=== PATIENT | female | born 1990 | race American Indian/Alaskan Native ===

== ENCOUNTER 2016-11-16 22:01 | Emergency (ER) | payer BC, OTHER ==
[2016-11-16] MEDS ORDERED: Sodium Chloride 0.9% 1,000 ML IV ONE (22:20)
[2016-11-16] MEDS ORDERED: Ketorolac 30 MG/ML SDV IVPUSH ONE (22:20)
[2016-11-16] MEDS ORDERED: Ondansetron 4 MG/2 ML SDV IV ONE (22:20)
--- NOTE | 2016-11-16 22:22 | EDM.PDOC ---
ED HPI GENERAL MEDICAL PROBLEM - General Chief Complaint: Abdominal Pain Stated Complaint: ABD,BACK PAINS, [id number] Time Seen by Provider: 11/16/16 22:20 Source of Information: Reports: Patient History Limitations: Reports: No Limitations - History of Present Illness INITIAL COMMENTS - FREE TEXT/NARRATIVE: 2 days h/o left flank pain with some urinary discomfort almost feels like K- stone been nauseous no vomiting. Left Flank Pain Score (Numeric/FACES): 8 - Related Data Allergies Allergy/AdvReac Type Severity Reaction Status Date / Time No Known Allergies Allergy Verified 11/16/16 22:04 Home Meds: Home Meds . 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 Musculoskeletal History: Reports: None Neurological History: Reports: None Psychiatric History: Reports: None Endocrine/Metabolic History: Reports: None Hematologic History: Reports: None Immunologic History: Reports: None Oncologic (Cancer) History: Reports: None Dermatologic History: Reports: None - Past Surgical History Female Surgical History: Reports: Lithotripsy/ESWL Social & Family History - Family History Family Medical History: Noncontributory - Tobacco Use Smoking Status *Q: Light Tobacco Smoker Years of Tobacco use: 10 Packs/Tins Daily: 0.2 Used Tobacco, but Quit: No Second Hand Smoke Exposure: No - Alcohol Use Days Per Week of Alcohol Use: 0 - Recreational Drug Use Recreational Drug Use: No - Living Situation & Occupation Living situation: Reports: with Family ED ROS GENERAL - Review of Systems Review Of Systems: ROS reveals no pertinent complaints other than HPI. ED EXAM, RENAL/ - Physical Exam Exam: See Below Exam Limited By: No Limitations General Appearance: Alert, WD/WN, Mild Distress, Other (discomfort) Ears: Hearing Grossly Normal Throat/Mouth: Normal Voice, No Airway Compromise Head: Atraumatic Neck: Non-Tender, Full Range of Motion Respiratory/Chest: No Respiratory Distress Cardiovascular: Regular Rate, Rhythm GI/Abdominal: Soft, Non-Tender Back Exam: CVA Tenderness (L) Neurological: Alert, Oriented, Normal Cognition, Normal Gait, No Motor/Sensory Deficits Psychiatric: Tearful Skin Exam: Warm, Dry Lymphatic: No Adenopathy Course - Vital Signs Last Recorded V/S: Last Vital Signs Temp 35.7 C 11/16/16 22:05 Pulse 69 11/16/16 22:05 Resp 18 11/16/16 22:05 BP 143/84 H 11/16/16 22:05 Pulse Ox 97 11/16/16 22:05 - Orders/Labs/Meds Orders: Active Orders 24 hr Category Date Time Status Sodium Chloride 0.9% [Normal Saline] 1,000 ml Med 11/16/16 22:20 Active IV .BOLUS Medication Orders Sodium Chloride (Normal Saline) 1,000 mls @ 999 mls/hr IV .BOLUS ONE Stop: 11/16/16 23:20 Last Admin: 11/16/16 22:26 Dose: 999 mls/hr Labs: Laboratory Tests 11/16/16 11/16/16 11/16/16 Range/Units 22:03 22:03 22:03 Urine Color Yellow (YELLOW) Urine Appearance Slightly cloudy (CLEAR) Urine pH 6.5 (5.0-9.0) Ur Specific [place] 1.020 (1.005-1.030) Urine Protein Negative (NEGATIVE) Urine Glucose (UA) Negative (NEGATIVE) Urine Ketones Negative (NEGATIVE) Urine Occult Blood Moderate H (NEGATIVE) Urine Nitrite Negative (NEGATIVE) Urine Bilirubin Negative (NEGATIVE) Urine Urobilinogen 0.2 (0.2-1.0) mg/dL Ur Leukocyte Esterase Trace H (NEGATIVE) Urine RBC 5-10 H /HPF Urine WBC 0-5 (0-5/HPF) /HPF Ur Epithelial Cells Many H /HPF Urine Bacteria Moderate H (0-FEW/HPF) /HPF Urine HCG, Qual Negative Urine Opiates Screen Negative (NEGATIVE) Ur Oxycodone Screen Negative (NEGATIVE) Urine Methadone Screen Negative (NEGATIVE) Ur Barbiturates Screen Negative (NEGATIVE) U Tricyclic Antidepress Negative (NEGATIVE) Ur Phencyclidine Scrn Negative (NEGATIVE) Ur Amphetamine Screen Negative (NEGATIVE) U Methamphetamines Scrn Negative (NEGATIVE) Urine MDMA Screen Negative (NEGATIVE) U Benzodiazepines Scrn Negative (NEGATIVE) Urine Cocaine Screen Negative (NEGATIVE) U Marijuana (THC) Screen Positive H (NEGATIVE) Meds: Medications Generic Name Dose Route Start Last Admin Trade Name Freq PRN Reason Stop Dose Admin Sodium Chloride 1,000 mls @ 999 mls/hr 11/16/16 22:20 11/16/16 22:26 Normal Saline IV 11/16/16 23:20 999 mls/hr .BOLUS ONE Administration Discontinued Medications Generic Name Dose Route Start Last Admin Trade Name Cari PRN Reason Stop Dose Admin Ketorolac Tromethamine 15 mg 11/16/16 22:20 11/16/16 22:28 Toradol IVPUSH 11/16/16 22:21 15 mg ONETIME ONE Administration Ondansetron HCl 4 mg 11/16/16 22:20 11/16/16 22:27 Zofran IV 11/16/16 22:21 4 mg ONETIME ONE Administration - Re-Assessments/Exams Free Text/Narrative Re-Assessment/Exam: 11/16/16 23:16 results discussed with Pt who is feeling much better now Departure - Departure Time of Disposition: 23:16 Disposition: Home, Self-Care 01 Condition: Good Clinical Impression: Lumbar paraspinal muscle spasm - Discharge Information Instructions: Back Exercises, [id number] Forms: ED Department Discharge Additional Instructions: 1) rest and avoid bending lifting straining 2) try ice or heat to area 3) follow up with clinic or recheck as needed - My Orders Last 24 Hours: My Active Orders 11/16/16 22:20 Sodium Chloride 0.9% [Normal Saline] 1,000 ml IV .BOLUS - Assessment/Plan Last 24 Hours: My Active Orders 11/16/16 22:20 Sodium Chloride 0.9% [Normal Saline] 1,000 ml IV .BOLUS
[2016-11-16 23:20] VITALS: BP 100/56
== END 2016-11-16 23:23 | disposition home or self-care (01) ==
LOC: DL.ED 22:01
DX: M62.830 Muscle spasm of back (principal); R10.9 Unspecified abdominal pain
CPT/HCPCS: 74176; 80305; 81001; 81025; J1885; J2405; J7030; 96361; 96374; 96375; 99284

== ENCOUNTER 2017-10-09 20:11 | Emergency (ER) | payer OTHER ==
[2017-10-09] MEDS ORDERED: Aluminum Hydroxide/Magnesium Hydroxide/Simethicone Susp 30 ML Cup PO ONE (20:51)
[2017-10-09] MEDS ORDERED: Ondansetron 4 MG Tab.DIS PO ONE (20:51)
[2017-10-09 20:55] LABS: CHLORIDE,CL 100 mmol/L (101-111); SODIUM,NA 134 mmol/L (135-145)
[2017-10-09] MEDS ORDERED: Sodium Chloride 0.9% 1,000 ML IV ONE (21:09)
[2017-10-09] MEDS ORDERED: Potassium Chloride 10 MEQ in Premix Bag 1 BAG IV ONE (21:10)
--- NOTE | 2017-10-09 23:20 | EDM.PDOC ---
ED HPI GENERAL MEDICAL PROBLEM - General Chief Complaint: Chest Pain Stated Complaint: CHEST PAINS Time Seen by Provider: 10/09/17 20:30 Source of Information: Reports: Patient History Limitations: Reports: No Limitations - History of Present Illness INITIAL COMMENTS - FREE TEXT/NARRATIVE: ED with c/o mid sternal and epigastric pain starting today around 4pm that has not improved, last meal Burrito. Was seen at [facility] today and treated for kidney infection with Keflex. Notes has not taken this anitibiotic previously. Notes 12 weeks . OB appointment with Dr Lind on Sunday. 2. 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 Referral to nephrology and OB is reported to being arranged by [facility]. States US of kidney done today with limited visualization. 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 Musculoskeletal History: Reports: Fracture, Other (See Below) Other Musculoskeletal History: Colar bone and right wrist fracture Neurological History: Reports: None Psychiatric History: Reports: None Endocrine/Metabolic History: Reports: None Hematologic History: Reports: None Immunologic History: Reports: None Oncologic (Cancer) History: Reports: None Dermatologic History: Reports: None - Past Surgical History Female Surgical History: Reports: Lithotripsy/ESWL Social & Family History - Family History Family Medical History: Noncontributory - Tobacco Use Smoking Status *Q: Never Smoker - Caffeine Use Caffeine Use: Reports: Soda - Recreational Drug Use Recreational Drug Use: No - Living Situation & Occupation Living situation: Reports: with Family ED ROS GENERAL - Review of Systems Review Of Systems: See Below Constitutional: Reports: No Symptoms HEENT: Reports: No Symptoms Respiratory: Reports: No Symptoms Cardiovascular: Reports: No Symptoms GI/Abdominal: Reports: Abdominal Pain, Nausea. Denies: Vomiting : Reports: Dysuria, Flank Pain (right, hx left ureteral stent), Other ( initiated on Keflex today for UTI) ED EXAM, GI/ABD - Physical Exam Exam: See Below Exam Limited By: No Limitations General Appearance: Alert, Mild Distress, Active Emesis (dry heaves) Eyes: Bilateral: EOMI Ears: Normal External Exam Nose: Normal Inspection Throat/Mouth: Normal Inspection Head: Atraumatic, Normocephalic Neck: Normal Inspection Respiratory/Chest: No Respiratory Distress, Lungs Clear, Normal Breath Sounds Cardiovascular: Normal Peripheral Pulses, Regular Rate, Rhythm GI/Abdominal Exam: Normal Bowel Sounds, Soft, Tender (epigastric RUQ) (Female) Exam: Other (FHT 140's) Back Exam: CVA Tenderness (L). No: CVA Tenderness (R) Extremities: Normal Inspection Neurological: Alert, Oriented, Normal Cognition Psychiatric: Normal Affect, Normal Mood Course - Vital Signs Last Recorded V/S: Last Vital Signs Temp 98.6 F 10/09/17 23:20 Pulse 69 10/09/17 23:20 Resp 18 10/09/17 23:20 BP 106/53 L 10/09/17 23:20 Pulse Ox 98 10/09/17 23:20 - Orders/Labs/Meds Orders: Active Orders 24 hr Category Date Time Status EKG Documentation Completion [RC] STAT Care 10/09/17 20:22 Active UA W/MICROSCOPIC [URIN] Stat Lab 10/09/17 21:20 Ordered Labs: Laboratory Tests 10/09/17 10/09/17 10/09/17 Range/Units 20:28 20:28 20:28 WBC 23.5 H (5.0-10.0) 10^3/uL RBC 4.38 (4.2-5.4) 10^6/uL Hgb 13.2 (12.0-16.0) g/dL Hct 38.2 (37.0-47.0) % MCV 87.2 (80-100) fL MCH 30.1 (27.0-34.0) pg MCHC 34.6 (33.0-35.0) g/dL Plt Count 319 (150-450) 10^3/uL Neut % (Auto) 85.0 H (42.2-75.2) % Lymph % (Auto) 11.3 L (20.5-50.1) % [place] % (Auto) 3.3 (2-8) % Eos % (Auto) 0.3 L (1.0-3.0) % Baso % (Auto) 0.1 (0.0-1.0) % Sodium 134 L (135-145) mmol/L Potassium 2.7 L (3.6-5.0) mmol/L Chloride 100 L (101-111) mmol/L Carbon Dioxide 23.0 (21.0-31.0) mmol/L Anion Gap 13.7 BUN 6 L (7-18) mg/dL Creatinine 0.5 L (0.6-1.3) mg/dL Est Cr Clr Drug Dosing 143.36 mL/min Estimated GFR (MDRD) > 60 BUN/Creatinine Ratio 12.00 Glucose 119 H (74-105) mg/dL Calcium 9.1 (8.4-10.2) mg/dl Total Bilirubin 0.5 (0.2-1.0) mg/dL AST 27 (10-42) IU/L ALT 12 (10-60) IU/L Alkaline Phosphatase 45 (42-121) IU/L Troponin I < 0.02 (0.00-0.02) ng/ml Total Protein 7.1 (6.7-8.2) g/dl Albumin 3.5 (3.2-5.5) g/dl Globulin 3.6 Albumin/Globulin Ratio 0.97 Amylase 44 (28-100) U/L Lipase 17 L (22-51) U/L HCG, Quant > 1324 H (0-25) mIU/ml Beta HCG, Quant 91704 mIU/ml Urine Color (YELLOW) Urine Appearance (CLEAR) Urine pH (5.0-9.0) Ur Specific [place] (1.005-1.030) Urine Protein (NEGATIVE) Urine Glucose (UA) (NEGATIVE) Urine Ketones (NEGATIVE) Urine Occult Blood (NEGATIVE) Urine Nitrite (NEGATIVE) Urine Bilirubin (NEGATIVE) Urine Urobilinogen (0.2-1.0) mg/dL Ur Leukocyte Esterase (NEGATIVE) Urine RBC /HPF Urine WBC (0-5/HPF) /HPF Ur Epithelial Cells /HPF Amorphous Sediment (0/HPF) /HPF Urine Bacteria (0-FEW/HPF) /HPF Urine Mucus /LPF 10/09/17 Range/Units 21:20 WBC (5.0-10.0) 10^3/uL RBC (4.2-5.4) 10^6/uL Hgb (12.0-16.0) g/dL Hct (37.0-47.0) % MCV (80-100) fL MCH (27.0-34.0) pg MCHC (33.0-35.0) g/dL Plt Count (150-450) 10^3/uL Neut % (Auto) (42.2-75.2) % Lymph % (Auto) (20.5-50.1) % [place] % (Auto) (2-8) % Eos % (Auto) (1.0-3.0) % Baso % (Auto) (0.0-1.0) % Sodium (135-145) mmol/L Potassium (3.6-5.0) mmol/L Chloride (101-111) mmol/L Carbon Dioxide (21.0-31.0) mmol/L Anion Gap BUN (7-18) mg/dL Creatinine (0.6-1.3) mg/dL Est Cr Clr Drug Dosing mL/min Estimated GFR (MDRD) BUN/Creatinine Ratio Glucose (74-105) mg/dL Calcium (8.4-10.2) mg/dl Total Bilirubin (0.2-1.0) mg/dL AST (10-42) IU/L ALT (10-60) IU/L Alkaline Phosphatase (42-121) IU/L Troponin I (0.00-0.02) ng/ml Total Protein (6.7-8.2) g/dl Albumin (3.2-5.5) g/dl Globulin Albumin/Globulin Ratio Amylase (28-100) U/L Lipase (22-51) U/L HCG, Quant (0-25) mIU/ml Beta HCG, Quant mIU/ml Urine Color Yellow (YELLOW) Urine Appearance Slightly cloudy (CLEAR) Urine pH 6.0 (5.0-9.0) Ur Specific [place] >= 1.030 (1.005-1.030) Urine Protein >=300 H (NEGATIVE) Urine Glucose (UA) Negative (NEGATIVE) Urine Ketones 15 H (NEGATIVE) Urine Occult Blood Moderate H (NEGATIVE) Urine Nitrite Negative (NEGATIVE) Urine Bilirubin Negative (NEGATIVE) Urine Urobilinogen 0.2 (0.2-1.0) mg/dL Ur Leukocyte Esterase Negative (NEGATIVE) Urine RBC 20-30 H /HPF Urine WBC 0-5 (0-5/HPF) /HPF Ur Epithelial Cells Moderate H /HPF Amorphous Sediment Rare (0/HPF) /HPF Urine Bacteria Rare (0-FEW/HPF) /HPF Urine Mucus Few H /LPF Meds: Medications Discontinued Medications Generic Name Dose Route Start Last Admin Trade Name Freq PRN Reason Stop Dose Admin Al Hydroxide/Mg Hydroxide 30 ml 10/09/17 20:51 10/09/17 20:59 Mag-Al Plus PO 10/09/17 20:52 30 ml ONETIME ONE Administration Sodium Chloride 1,000 mls @ 125 mls/hr 10/09/17 21:09 10/09/17 21:16 Normal Saline IV 10/10/17 05:08 125 mls/hr .BOLUS ONE Administration Potassium Chloride 10 meq/ 100 mls @ 100 mls/hr 10/09/17 21:10 10/09/17 21:17 Premix IV 10/09/17 22:09 100 mls/hr ONETIME ONE Administration Ondansetron HCl 4 mg 10/09/17 20:51 10/09/17 20:54 Zofran Odt PO 10/09/17 20:52 4 mg ONETIME ONE Administration - Re-Assessments/Exams Free Text/Narrative Re-Assessment/Exam: 10/10/17 05:11 Nausea and discomfort resolved. Departure - Departure Time of Disposition: 23:17 Disposition: Home, Self-Care 01 Condition: Good Clinical Impression: First trimester UTI (urinary tract infection) Qualifiers: Urinary tract infection type: site unspecified Hematuria presence: with hematuria Qualified Code(s): N39.0 - Urinary tract infection, site not specified ; R31.9 - Hematuria, unspecified Acid reflux Qualifiers: Esophagitis presence: without esophagitis Qualified Code(s): K21.9 - Gastro- esophageal reflux disease without esophagitis - Discharge Information Instructions: Indigestion, [id number], Hypokalemia Referrals: Mariely Lind MD [Primary Care Provider] - Forms: ED Department Discharge Additional Instructions: follow up with primary care in am if nauseated with medication rest increase fluids high potassium diet recheck potassium - My Orders Last 24 Hours: My Active Orders 10/09/17 20:22 EKG Documentation Completion [RC] STAT 10/09/17 21:20 UA W/MICROSCOPIC [URIN] Stat - Assessment/Plan Last 24 Hours: My Active Orders 10/09/17 20:22 EKG Documentation Completion [RC] STAT 10/09/17 21:20 UA W/MICROSCOPIC [URIN] Stat
[2017-10-09 23:28] VITALS: BP 106/53
--- NOTE | 2017-10-11 07:21 | EKG ---
10/09/2017- [facility] - A 12-lead EKG shows normal sinus rhythm with heart rate of 92. No significant ST elevation or ST depression noted on this 12-lead EKG. [facility] /[id number]
== END 2017-10-09 23:23 | disposition home or self-care (01) ==
LOC: DL.ED 20:11
DX: O99.611 Diseases of the digestive system complicating pregnancy, first trimester (principal); K21.9 Gastro-esophageal reflux disease without esophagitis; O23.41 Unspecified infection of urinary tract in pregnancy, first trimester; Z3A.12 12 weeks gestation of pregnancy; Z79.899 Other long term (current) drug therapy
CPT/HCPCS: 36415; 80053; 81001; 82150; 83690; 84484; 84702; 85025; 93005; 96361; 96365; 99285; A9270-GY; J3480; J7030

== ENCOUNTER 2022-12-18 04:08 | Emergency (ER) | payer MEDICAID ==
[2022-12-18 04:29] VITALS: BP 147/87; PULSE 69
[2022-12-18] MEDS ORDERED: Ketorolac 30 MG/ML SDV IVPUSH ONE (04:46)
[2022-12-18] MEDS ORDERED: Metoclopramide 10 MG/2 ML SDV IVPUSH ONE (04:46)
[2022-12-18] MEDS ORDERED: Sodium Chloride 0.9% 1,000 ML IV ONE (04:47)
[2022-12-18] MEDS ORDERED: Sodium Chloride 0.9% 10 ML Syringe FLUSH PRN (04:47)
[2022-12-18 04:57] LABS: HEMATOCRIT 37.3 % (37.0-47.0); HEMOGLOBIN 12.1 g/dL (12.0-16.0); MEAN CORPUSCULAR HGB CONC 32.4 g/dL (33.0-35.0); MEAN CORPUSCULAR VOLUME 89.4 fL (80-100); PLATELET COUNT,PLT 382 10^3/uL (150-450); RED BLOOD CELL COUNT 4.17 10^6/uL (4.2-5.4); WHITE BLOOD CELL COUNT,WBC 16.3 10^3/uL (5.0-10.0)
[2022-12-18 04:59] LABS: BASOPHILS PERCENT AUTO 0.2 % (0.0-1.0); EOSINOPHILS PERCENT AUTO 1.8 % (1.0-3.0); MONOCYTES PERCENT AUTO 6.1 % (2-8); NEUTROPHILS PERCENT AUTO 72.9 % (42.2-75.2)
[2022-12-18 04:59] LABS: APPEARANCE,URINE CLEAR (CLEAR); BILIRUBIN,URINE NEGATIVE (NEGATIVE); COLOR,URINE YELLOW (YELLOW); GLUCOSE,URINE NEGATIVE (NEGATIVE); KETONES,URINE NEGATIVE (NEGATIVE); LEUKOCYTE ESTERASE,URINE SMALL (NEGATIVE); NITRITE,URINE NEGATIVE (NEGATIVE); OCCULT BLOOD,URINE LARGE (NEGATIVE); PH,URINE 5.5 (5.0-9.0); PROTEIN,URINE NEGATIVE (NEGATIVE); UROBILINOGEN,URINE 0.2 mg/dL (0.2-1.0)
[2022-12-18 05:11] LABS: AMORPHOUS SEDIMENT,URINE FEW /HPF (NOT SEEN); BACTERIA,URINE FEW /HPF (0-FEW/HPF); EPITHELIAL CELLS,URINE MODERATE /HPF (NOT SEEN); MUCUS,URINE FEW /LPF (NOT SEEN)
[2022-12-18 05:17] LABS: EOSINOPHILS PERCENT MAN 1 % (1-3); LYMPHOCYTES PERCENT MAN 17 % (20-50); MONOCYTES PERCENT MAN 9 % (2-8); SEG NEUTROPHILS PERCENT MAN 73 % (42-75)
[2022-12-18 05:19] LABS: A/G RATIO 0.61; ALBUMIN 2.5 g/dL (3.4-5.0); ANION GAP 14.7 mEq/L (7-13); BILIRUBIN TOTAL 0.2 mg/dL (0.2-1.0); BUN/CREATININE RATIO 15.8 (No establ ref range); CALCIUM 8.6 mg/dL (8.5-10.1); CREATININE 0.57 mg/dL (0.55-1.02); EST CRCL DRUG DOSING (CG) 120.09 mL/min; POTASSIUM,K 3.7 mmol/L (3.5-5.1); PROTEIN TOTAL,TP 6.6 g/dL (6.4-8.2)
[2022-12-18] MEDS ORDERED: HYDROmorphone 1 MG/ML Syringe IVPUSH ONE (05:32)
[2022-12-18] MEDS ORDERED: Ciprofloxacin 500 MG Tab PO ONE (06:23)
== END 2022-12-18 06:54 | disposition home or self-care (01) ==
LOC: DL.ED 04:08
DX: N13.6 Pyonephrosis (principal); F17.210 Nicotine dependence, cigarettes, uncomplicated; E66.9 Obesity, unspecified; Z68.35 Body mass index [BMI] 35.0-35.9, adult
CPT/HCPCS: 36415; 74176; 80053; 81001; 83690; 85025; 96361; 96374; 96375; 99284; 99284-25; A9270-GY; J1170; J1885; J2765; J3490; J7030

== ENCOUNTER 2024-06-21 19:04 | Emergency (ER) | payer MEDICAID, OTHER ==
[2024-06-21] MEDS: Ibuprofen 800 MG Tab PO ONE (19:52)
[2024-06-21] MEDS: Ondansetron 4 MG Tab.DIS PO ONE (19:52)
[2024-06-21] MEDS: guaiFENesin 600 MG Tab.ER PO ONE (19:52)
[2024-06-21] MEDS: Acetaminophen 500 MG Tab PO ONE (19:52)
[2024-06-21 20:50] VITALS: BP 139/87; PULSE 84
== END 2024-06-21 20:50 | disposition home or self-care (01) ==
LOC: DL.ED 19:04
DX: B34.9 Viral infection, unspecified (principal); Z79.899 Other long term (current) drug therapy
CPT/HCPCS: 71046; 93005; 99283; A9270

== ENCOUNTER 2024-09-26 11:32 | Emergency (ER) | payer MEDICAID, OTHER ==
[2024-09-26] MEDS: Ketorolac 30 MG/ML SDV IM ONE (12:10)
[2024-09-26 12:23] VITALS: BP 100/73; PULSE 55
== END 2024-09-26 12:19 | disposition home or self-care (01) ==
LOC: DL.ED 11:32
DX: S93.401A Sprain of unspecified ligament of right ankle, initial encounter (principal); E66.9 Obesity, unspecified; Z68.30 Body mass index [BMI] 30.0-30.9, adult; Z79.899 Other long term (current) drug therapy; W01.0XXA Fall on same level from slipping, tripping and stumbling without subsequent striking against object, initial encounter
CPT/HCPCS: 73562; 73610; 96372; 99283; J1885